=== PATIENT | female | born 1965 | race Caucasian/White ===

== ENCOUNTER → 2019-04-29 14:01 | Outpatient (CLI) | payer MEDICAID | END | disposition home or self-care (01) | LOC: D.RAD 14:01 | PROVIDERS: ATTEND Family Medicine | DX: R07.9 Chest pain, unspecified (principal) ==

== ENCOUNTER 2019-06-27 11:13 | Emergency (ER) | payer MEDICAID ==
[~2019-06-27] VITALS: Ht 160 cm; Wt 88.2 kg
[2019-06-27 11:14] VITALS: Ht 160 cm; Wt 88.2 kg
[2019-06-27] MEDS ORDERED: NOVOLOG100 UNIT/1 SC (11:18)
[2019-06-27] MEDS ORDERED: TRESIBA FL100 UNIT/1 SC (11:18)
[2019-06-27] MEDS ORDERED: LYRICA150 MG PO (11:19)
[2019-06-27] MEDS ORDERED: JANUVIA50 MG PO (11:19)
[2019-06-27] MEDS ORDERED: OMEPRAZOLE40 MG PO (11:20)
[2019-06-27] MEDS ORDERED: ZOCOR40 MG PO (11:20)
[2019-06-27 11:44] LABS: BASOPHILS 0.4 % (0-2); EOSINOPHILS 0.6 % (0-7); HEMOGLOBIN 13.5 g/dL (12-16); IMMATURE GRANULOCYTES 0.3 % (0-5); LYMPHOCYTES 19.5 % (15-50); MCH 29.7 pg (26.0-34.0); MCHC 33.8 g/dL (31.0-37.0); MCV 88.1 fL (80.0-100.0); MEAN PLATELET VOLUME 10.2 fL (7.4-10.4); MONOCYTES 4.5 % (2-11); NEUTROPHILS 74.7 % (40-80); PLATELET COUNT 282 10x3/uL (130-400); RBC 4.54 10x6/uL (4.00-5.40); RDW 15.6 % (11.5-14.5); WBC 14.1 10x3/uL (4.8-10.8)
[2019-06-27 12:02] LABS: APPEARANCE CLEAR (CLEAR); BILIRUBIN NEGATIVE (NEGATIVE); COLOR YELLOW (YELLOW); GLUCOSE NEGATIVE (NEGATIVE); KETONE SMALL mg/dL (NEGATIVE); NITRITE NEGATIVE (NEGATIVE); PROTEIN NEGATIVE (NEGATIVE); SPECIFIC GRAVITY 1.025 (1.005-1.020); UROBILINOGEN NORMAL (NORMAL)
[2019-06-27 12:02] LABS: ALBUMIN 4.1 g/dL (3.4-5.0); ALKALINE PHOSPHATASE 98 U/L (46-116); ALT (SGPT) 46 U/L (10-68); BILIRUBIN - TOTAL 0.66 mg/dL (0.2-1.3); CALC OSMOLALITY 282 mosm/kg (275-300); CALCIUM 9.9 mg/dL (8.5-10.1); CARBON DIOXIDE 25.9 mmol/L (21.0-32.0); CHLORIDE - SERUM 101 mmol/L (98-107); CREATININE - SERUM 0.7 mg/dL (0.6-1.3); GLUCOSE 212 mg/dL (74-106); PROTEIN - SERUM 8.8 g/dL (6.4-8.2); SODIUM 138 mmol/L (136-145); UREA NITROGEN 15 mg/dL (7-18); eGFR NON AFRICAN AMERICAN > 90 mL/min (90-120)
[2019-06-27 12:04] LABS: LIPASE 219 U/L (73-393)
[2019-06-27 12:07] LABS: TROPONIN-I < 0.017 ng/mL (0.000-0.060)
[2019-06-27] MEDS ORDERED: PROTONIX40 MG PO (15:01)
[2019-06-27] MEDS ORDERED: ZOFRAN ODT4 MG/UDTAB PO (15:01)
[2019-06-27 15:24] VITALS: BP 136/80
== END 2019-06-27 15:25 | disposition home or self-care (01) ==
LOC: D.ER 11:13
PROVIDERS: Family Medicine
DX: K29.70 Gastritis, unspecified, without bleeding (principal)

== ENCOUNTER → 2020-12-13 08:30 | Outpatient (CLI) | payer BC ==
[2019-06-27 11:14] VITALS: BMI 34.4
[~2020-12-13 08:30] MED LIST: JANUVIA50 MG PO; LYRICA150 MG PO; NOVOLOG100 UNIT/1 SC; OMEPRAZOLE40 MG PO; PROTONIX40 MG PO; TRESIBA FL100 UNIT/1 SC; ZOCOR40 MG PO; ZOFRAN ODT4 MG/UDTAB PO
== END | disposition home or self-care (01) ==
LOC: D.US 08:00
PROVIDERS: ATTEND Family Medicine
DX: R10.814 Left lower quadrant abdominal tenderness (principal)